=== PATIENT | male | born 1945 | race Caucasian/White ===

== ENCOUNTER → 2021-06-13 | Day surgery (SDC) | payer OTHER ==
[~2021-06-13] MED LIST: GLEEVEC400 MG PO; LISINOPRIL10 MG PO; SINGULAIR10 MG PO; TYLENOL ARTHRITIS PO; ZYRTEC10 MG PO
== END | disposition home or self-care (01) ==
LOC: OR 05:32
DX: Z12.11 Encounter for screening for malignant neoplasm of colon (principal); Z86.010 Personal history of colon polyps; Z20.822 Contact with and (suspected) exposure to COVID-19
CPT/HCPCS: J2704; J7030